=== PATIENT | male | born 1990 | race Caucasian/White ===

== ENCOUNTER 2016-11-03 17:39 | Emergency (ER) | payer SELFPAY ==
[~2016-11-03] VITALS: Ht 180.3 cm; Wt 77.0 kg
[~2016-11-03 17:39] MED LIST: CLEO300C2 PO
[2016-11-03 17:40] VITALS: BP 144/82; PULSE 94; RESP 20; TEMP 97.5; O2SAT 99
--- NOTE | 2016-11-03 18:19 | PD ---
HPI Chief Complaint: Flank/Kidney Pain Time Seen by Provider: 17:52 Travel History International Travel<30 days: No Contact w/Intl Traveler<30days: No Traveled to known affect area: No History of Present Illness HPI Patient is a 26-year-old male presents emergency department for evaluation of right flank right-sided back pain right-sided neck pain and some mild dysphasia for the past 3 weeks. Patient states that he was initially evaluated at [facility] with a CBC CMP troponin EKG CAT scan of his chest which no showed no significant abnormality and no definitive cause of his pain. He was instructed to take antacids is been doing so and has not been helping. States the pain got worse tonight and decided to come in here and be seen. He does provide documentation of these tests being performed unfortunately does not have the results. States his symptoms just been persisting cannot identify any alleviating or exacerbating factors. They're moderate in intensity. Endorses some mild dysuria but denies any hematuria or fevers. Denies any cough or congestion. He states that he was diagnosed with pharyngitis at this institution some months ago and has completed his antibiotics for that initial evaluation at [facility]. 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 DRANK BEER TO EXCESS, APPROX 12 CANS SUNDAY) Tobacco Use: Yes (1/2PPD) Substance Use: No Allergies-Medications (Allergen,Severity, Reaction): Coded Allergies: Penicillin (Verified Allergy, Severe, 11/03/16) Bees (Verified Allergy, Intermediate, SOB AND EDEMA, 11/03/16) Reported Meds & Prescriptions Reported Meds & Active Scripts Active Review of Systems Except as stated in HPI: all other systems reviewed are Neg Physical Exam Narrative GENERAL: Well-developed well-nourished no apparent distress SKIN: No skin mass no rash no bruising on his trunk or abdomen or extremities. HEAD: Atraumatic. Normocephalic. EYES: Pupils equal and round. No scleral icterus. No injection or drainage. ENT: No nasal bleeding or discharge. Mucous membranes pink and moist. Oropharynx clear airway patent, tonsils normal, TMs clear bilaterally. NECK: Trachea midline. No JVD. CARDIOVASCULAR: Regular rate and rhythm. No murmur appreciated. RESPIRATORY: No accessory muscle use. Clear to auscultation. Breath sounds equal bilaterally. GASTROINTESTINAL: Abdomen soft, non-tender, nondistended. Hepatic and splenic margins not palpable. No CVA tenderness no rebound no percussive tenderness. Abdomen is completely benign. MUSCULOSKELETAL: No obvious deformities. No clubbing. No cyanosis. No edema. NEUROLOGICAL: Awake and alert. No obvious cranial nerve deficits. Motor grossly within normal limits. Normal speech. PSYCHIATRIC: Appropriate mood and affect; insight and judgment normal. Data Data Last Documented VS Vital Signs Date Time Temp Pulse Resp B/P Pulse Ox O2 Delivery O2 Flow Rate FiO2 11/03/16 17:40 97.5 94 20 144/82 99 Room Air Orders Urinalysis - C+S If Indicated (11/03/16 17:52) Electrocardiogram (11/03/16 ) Mandatory Outpatient Referral (11/03/16 20:26) Labs Laboratory Tests Test 11/03/16 18:25 Urine Color YELLOW Urine Turbidity CLEAR Urine pH 6.0 Urine Specific [place] 1.020 Urine Protein NEG mg/dL Urine Glucose (UA) NEG mg/dL Urine Ketones NEG mg/dL Urine Occult Blood NEG Urine Nitrite NEG Urine Bilirubin NEG Urine Urobilinogen LESS THAN 2.0 MG/DL Urine Leukocyte Esterase NEG Urine WBC 2 /hpf Urine Squamous Epithelial 1 /hpf Cells Microscopic Urinalysis Comment CULT NOT INDICATED MDM Medical Decision Making Medical Screen Exam Complete: Yes Emergency Medical Condition: Yes Interpretation(s) EKG shows normal sinus rhythm with a normal axis and normal R-wave progression. No concerning ST T changes. Normal intervals. This is a normal EKG. Differential Diagnosis Costochondritis, muscle strain, muscle sprain, acute abdomen highly unlikely, kidney stones highly unlikely, pneumonia unlikely, Narrative Course Patient was roomed in emergency department, given he had a complete workup and he has benign physical exam I think the central part of his workup today her is an EKG and a urinalysis both of which are reassuring. I have offered to repeat other labs including troponin CBC CMP however I think that since he just had these tests and they were negative these are unlikely to be fruitful or line themselves to the diagnosis. I discussed with him needs follow-up with a [facility] given his dysphagia symptoms but he is able to tolerate by mouth in the emergency department. He was offered pain medicine and declined. He is stable for discharge. He was given fliers for the [facility] for follow-up. Diagnosis Primary Impression: Dysphagia Additional Impression: Right flank pain Referrals: Jon Arita MD Disposition: 01 DISCHARGE HOME Condition: Stable Saroj Collins MD November 03, 2016 18:19
[2016-11-03 19:59] LABS: BLOOD, URINE NEG (NEG); COMMENT (UR) CULT NOT INDICATED; CULTURE IF INDICATED CULT NOT INDICATED; GLUCOSE,URINE NEG (NEG); KETONE, URINE NEG (NEG); NITRITE,URINE NEG (NEG); SQUAMOUS EPITHELIAL CELL URINE 1 /hpf (0-5); URINE COLOR YELLOW (YELLW/STRAW)
--- NOTE | 2016-11-04 16:47 | EKG ---
Date Performed: 11/03/2016 Time Performed: 18:27:25 PTAGE: 26 years EKG: Sinus rhythm NORMAL ECG Since the PREVIOUS TRACING 05/12/2016, heart rate is slower, otherwise no significant chage. PREVI OUS TRACIN05/12/2016 16.56 DOCTOR: Mohan Damon Interpretating Date/Time 11/04/2016 16:46:23
== END 2016-11-03 20:34 | disposition home or self-care (01) ==
LOC: NEPD 17:39
DX: R13.10 Dysphagia, unspecified (principal); R10.9 Unspecified abdominal pain; M54.2 Cervicalgia; F17.200 Nicotine dependence, unspecified, uncomplicated; F31.9 Bipolar disorder, unspecified
CPT/HCPCS: 81001; 93005; 99284